=== PATIENT | female | born 1975 | race American Indian/Alaskan Native ===

== ENCOUNTER 2019-12-07 09:00 | Emergency (ER) | payer OTHER ==
[2019-12-07 09:06] VITALS: BP 140/94
[2019-12-07] MEDS ORDERED: HYDROCORTISONE PR ONE (11:17)
[2019-12-07] MEDS ORDERED: PRAMOXINE PR ONE (11:17)
--- NOTE | 2019-12-07 11:56 | Emergency Department Report ---
ED General Adult HPI - General Chief complaint: Pain General Stated complaint: HEMMOROIDS Time Seen by Provider: 12/07/19 11:09 Source: patient Mode of arrival: Ambulatory Limitations: No Limitations - History of Present Illness Initial comments: Patient is a 44-year-old female presents emergency room with complaints of hemorrhoids that began 2 weeks ago. She states that she saw her primary care doctor and has been using hemorrhoid pads, Anusol suppositories, Preparation H ointment but that has not helped relieve her discomfort. She states that she has pain on the outer hemorrhoids. She states initially she noticed some bright red blood when she wiped after a bowel movement but that has since resolved. She states that she has had hemorrhoids recurrently but has not seen a general surgeon. She denies any abdominal pain, nausea, vomiting, diarrhea, fever, hematochezia, melena, heavy rectal bleeding, dizziness, lightheadedness, SOB. She denies any allergies to medications. She has a past medical history of hypothyroidism and hypertension. - Related Data Home Medications Medication Instructions Recorded Confirmed Last Taken Levothyroxine [Synthroid] 88 mcg PO QAM 03/13/15 03/13/15 03/13/15 10:00 Pnv,Calcium 72/Iron/Folic Acid 1 tab PO QDAY 03/13/15 03/13/15 03/12/15 14:00 [ Plus Tablet] Previous Rx's Medication Instructions Recorded Last Taken Type Metoprolol [Lopressor TAB] 25 mg PO BID #30 tablet 03/13/15 Unknown Rx Docusate Sodium [Colace] 100 mg PO BID #14 capsule 12/07/19 Unknown Rx Hydrocort/Pramoxine [Proctofoam-Hc] 1 applicatio SC DAILY #1 can 12/07/19 Unknown Rx Hydrocortisone [Anucort-HC SUPPOS] 25 mg RC BID #7 supp.rect 12/07/19 Unknown Rx Lidocaine [Lidocaine GEL] 1 applicatio TP BID PRN #1 12/07/19 Unknown Rx gel..gram. traMADoL [Ultram 50 MG tab] 50 mg PO Q6HR PRN #10 tablet 12/07/19 Unknown Rx Allergies Allergy/AdvReac Type Severity Reaction Status Date / Time No Known Allergies Allergy Unverified 03/13/15 13:15 ED Review of Systems ROS: Stated complaint: HEMMOROIDS Other details as noted in HPI Comment: All other systems reviewed and negative ED Past Medical Hx - Past Medical History Previous Medical History?: Yes Hx Hypertension: Yes Additional medical history: THYROID, Hemorrhoids - Surgical History Past Surgical History?: Yes Additional Surgical History: X 2 - Social History Smoking Status: Never Smoker Substance Use Type: Prescribed - Medications Home Medications: Home Medications Medication Instructions Recorded Confirmed Last Taken Type Levothyroxine [Synthroid] 88 mcg PO QAM 03/13/15 03/13/15 03/13/15 10:00 History Metoprolol [Lopressor TAB] 25 mg PO BID #30 tablet 03/13/15 Unknown Rx Pnv,Calcium 72/Iron/Folic Acid 1 tab PO QDAY 03/13/15 03/13/15 03/12/15 14:00 History [ Plus Tablet] Docusate Sodium [Colace] 100 mg PO BID #14 capsule 12/07/19 Unknown Rx Hydrocort/Pramoxine [Proctofoam-Hc] 1 applicatio SC DAILY #1 can 12/07/19 Unknown Rx Hydrocortisone [Anucort-HC SUPPOS] 25 mg RC BID #7 supp.rect 12/07/19 Unknown Rx Lidocaine [Lidocaine GEL] 1 applicatio TP BID PRN #1 12/07/19 Unknown Rx gel..gram. traMADoL [Ultram 50 MG tab] 50 mg PO Q6HR PRN #10 tablet 12/07/19 Unknown Rx ED Physical Exam - General Limitations: No Limitations General appearance: alert, in no apparent distress - Head Head exam: Present: atraumatic, normocephalic - Eye Eye exam: Present: normal appearance - ENT ENT exam: Present: mucous membranes moist - Rectal Rectal exam: Present: normal rectal tone, hemorrhoids, other (there are 3 external hemorrhoids approximately 1 cm each, non thrombosed, brown stool, no gross blood, placed proctofoam, drop forger helper: ROSE Nunez). Absent: black stool, bloody stool, mass - Neurological Exam Neurological exam: Present: alert, oriented X3 - Psychiatric Psychiatric exam: Present: normal affect, normal mood - Skin Skin exam: Present: warm, dry, intact ED Course Vital Signs 12/07/19 09:03 Temperature 97.9 F Pulse Rate 93 H Respiratory 18 Rate Blood Pressure 140/94 O2 Sat by Pulse 100 Oximetry ED Medical Decision Making - Medical Decision Making Patient is a 44-year-old female presents emergency room with complaints of hemorrhoids that began 2 weeks ago. She states that she saw her primary care doctor and has been using hemorrhoid pads, Anusol suppositories, Preparation H ointment but that has not helped relieve her discomfort. She states that she has pain on the outer hemorrhoids. She states initially she noticed some bright red blood when she wiped after a bowel movement but that has since resolved. She states that she has had hemorrhoids recurrently but has not seen a general surgeon. She denies any abdominal pain, nausea, vomiting, diarrhea, fever, hematochezia, melena, heavy rectal bleeding, dizziness, lightheadedness, SOB. She denies any allergies to medications. She has a past medical history of hypothyroidism and hypertension. Vitals are stable. On exam: there are 3 external hemorrhoids approximately 1 cm each, non thrombosed, brown stool, no gross blood, placed proctofoam, drop forger helper: ROSE Nunez. Discussed with patient that she needed to see a general surgeon for reexamination and due to the fact that she has these recurrently. Patient given prescription for Colace, Anusol, Proctofoam, tramadol, lidocaine gel. advised pt Please use medication as prescribed. Do not drive or operate heavy machinery when taking pain medication. Please follow-up with a general surgeon in the next 3 days. Return to the emergency room for any new or worsening symptoms. Critical care attestation.: If time is entered above; I have spent that time in minutes in the direct care of this critically ill patient, excluding procedure time. ED Disposition Clinical Impression: External hemorrhoids Disposition: DC-01 TO HOME OR SELFCARE Is pt being admited?: No Does the pt Need Aspirin: No Condition: Stable Instructions: Hemorrhoids (ED) Additional Instructions: Please use medication as prescribed. Do not drive or operate heavy machinery when taking pain medication. Please follow-up with a general surgeon in the next 3 days. Return to the emergency room for any new or worsening symptoms. Prescriptions: Hydrocortisone [Anucort-HC SUPPOS] 25 mg RC BID #7 supp.rect Docusate Sodium [Colace] 100 mg PO BID #14 capsule Lidocaine [Lidocaine GEL] 1 applicatio TP BID PRN #1 gel..gram. PRN Reason: pain Hydrocort/Pramoxine [Proctofoam-Hc] 1 applicatio SC DAILY #1 can traMADoL [Ultram 50 MG tab] 50 mg PO Q6HR PRN #10 tablet PRN Reason: Pain , Severe (7-10) Referrals: GINA BARRAZA MD [Staff Physician] - 2-3 Days Time of Disposition: 11:53 Print Language: CAMEROONIAN
== END 2019-12-07 12:07 | disposition home or self-care (01) ==
LOC: ED 09:00
DX: K64.4 Residual hemorrhoidal skin tags (principal); I10 Essential (primary) hypertension; Z98.890 Other specified postprocedural states; Z79.899 Other long term (current) drug therapy
CPT/HCPCS: 99282